=== PATIENT | male | born 1975 | race Caucasian/White ===

== ENCOUNTER 2017-12-28 14:36 | Emergency (ER) | payer OTHER ==
[~2017-12-28] VITALS: Ht 180.3 cm; Wt 108.9 kg
[~2017-12-28 14:36] MED LIST: NOHOMEMEDICATIONS
[2017-12-28] MEDS ORDERED: ADVIL200 M3 PO (14:47)
[2017-12-28] MEDS ORDERED: ASPIRIN81 M2 PO (14:48)
[2017-12-28 15:21] LABS: ABSOLUTE BASOPHILS 0.1 thou/uL (0.0-0.2); ABSOLUTE EOSINOPHILS 0.1 thou/uL (0.0-0.7); ABSOLUTE LYMPHOCYTES 2.3 thou/uL (0.8-5.3); ABSOLUTE MONOCYTES 0.7 thou/uL (0.0-1.2); ABSOLUTE NEUTROPHILS 4.4 thou/uL (1.6-8.1); HEMATOCRIT 43.3 % (42.0-52.0); HEMOGLOBIN 15.1 gm/dL (14.0-18.0); LYMPHOCYTES 30.9 %; MCV 82.9 fL (80.0-100.0); MONOCYTES 9.1 %; MPV 8.5 fl. (7.2-11.1); NUCLEATED RBCS 0 /100WBC; PLATELET COUNT* 200 thou/uL (150-400); RBC 5.22 mil/uL (4.50-6.00); RDW-CV 13.4 % (10.5-14.5); WBC 7.5 thou/uL (4.0-11.0)
[2017-12-28 15:32] LABS: ANION GAP 11 mmol/L (7-16); BUN 13 mg/dL (7-18); CALCIUM 9.1 mg/dL (8.5-10.1); CHLORIDE 101 mmol/L (98-107); CO2 25 mmol/L (21-32); CREATININE 1.2 mg/dL (0.6-1.3); GLUCOSE 104 mg/dL (70-99); POTASSIUM 3.5 mmol/L (3.5-5.1); SODIUM 137 mmol/L (136-145)
[2017-12-28 15:35] LABS: APTT 26.7 Seconds (25.0-31.3); INR 1.1; PROTIME 10.6 Seconds (9.20-11.50)
[2017-12-28 15:38] LABS: ALBUMIN 4.5 g/dL (3.4-5.0); ALKALINE PHOSPHATASE 70 U/L (46-116); LIPASE 222 U/L (73-393); SGOT 28 U/L (15-37); SGPT 48 U/L (30-65); TOTAL BILIRUBIN 0.6 mg/dL (<0.1-1.0); TOTAL PROTEIN 8.5 g/dL (6.4-8.2); TROPONIN-I LEVEL <0.06 ng/mL (<0.06)
[2017-12-28] MEDS ORDERED: PEPCID20 MG PO (16:04)
[2017-12-28] MEDS ORDERED: OMEPRAZOLE 20 M20 M1 PO (16:04)
[2017-12-28] MEDS ORDERED: XANAX 0.5 MG0.5 MG PO (16:17)
[2017-12-28 16:50] VITALS: BP 131/79
--- NOTE | 2017-12-29 08:35 | EKG ---
[place] [address] ELECTROCARDIOGRAM REPORT Name: GINNY CRAWFORD Room: [facility]#: [id number] Admission: 12/28/17 Attend Phys: Discharge: 12/28/17 Date of : 79 Report #: [id number] THIS REPORT FOR: //name// [facility] ED Test Date: 2017-12-28 Test Time: 14:42:01 Pat Name: GINNY CRAWFORD Department: Room: Gender: M [employer] Clerk: : 1975 Requested By: Freda Jeffries Order Number: [id number] MD: Galen Baird Measurements Intervals [place] Rate: 91 P: -9 SD: 133 QRS: 43 QRSD: 91 T: 24 QT: 362 QTc: 446 Interpretive Statements Sinus rhythm Compared to ECG 10/09/2015 00:33:36 No significant changes Electronically Signed On 12-29-2017 8:35:02 CDT by Galen Baird [email or web address] <ELECTRONICALLY SIGNED> By: Galen Baird MD, [facility] 12/29/17 0835 D: 04/1441 144 Galen Baird MD, FACC /EPI
== END 2017-12-28 16:50 | disposition home or self-care (01) ==
LOC: M.ERS 14:36
PROVIDERS: Physician Assistant
DX: R07.89 Other chest pain (principal); F41.9 Anxiety disorder, unspecified; Z87.891 Personal history of nicotine dependence